=== PATIENT | female | born 2005 | race African-American/Black ===

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

== ENCOUNTER 2025-01-20 12:49 | Outpatient (CLI) | payer BC, SELFPAY | END 2025-01-20 12:50 | disposition home or self-care (01) | LOC: NFLDREF 01-24 06:01 | PROVIDERS: Visit Provider Family Medicine | DX: R10.9 Unspecified abdominal pain (principal) | CPT/HCPCS: 87086 ==